=== PATIENT | male | born 1975 ===

== ENCOUNTER 2017-04-30 14:08 | Emergency (ER) | payer BC ==
[2017-04-30] MEDS ORDERED: Sodium Chloride 0.9% 10 ML Syringe FLUSH PRN (14:43)
--- NOTE | 2017-04-30 14:59 | EDM.PDOC ---
ED HPI GENERAL MEDICAL PROBLEM - General Chief Complaint: Chest Pain Stated Complaint: SYNCOPE/CHEST TIGHTNESS Time Seen by Provider: 04/30/17 14:30 Source of Information: Reports: Patient History Limitations: Reports: No Limitations - History of Present Illness INITIAL COMMENTS - FREE TEXT/NARRATIVE: Patient is a 42-year-old male who presents to the ED complaining of fluttering sensation to his chest. States he just does not feel well. States this sensation started last night. States he felt like he was coming down with something and felt rough. Patient went to work this morning and with moving heavy hose and pumps he started to feel worse. He has mild dizziness. Became mildly diaphoretic. Palpitations/fluttering sensation in his chest worsen. Patient presents to the ED mildly diaphoretic with fluttering sensation with presumably new onset A. fib per monitor. He denies any chest pain, shows breath, nausea/vomiting, increasing to be sick/ syncopal episode, pain to his back/ neck/ arms, nausea tingling, fever/chills, diarrhea, or any additional complaints. Patient drinks one cup of coffee in the a.m. Denies any caffeine supplementation or concerns consumption of pop or energy drinks. Denies taking any stimulants. Patient has no previous past medical history is currently taking no medications. He has no recent surgical history as well. Patient did smoke one pack of cigarettes per day but recently quit 2 days ago. Denies any recent alcohol or recreational drug use. PCP is Fadia RICHMOND. - Related Data Allergies Allergy/AdvReac Type Severity Reaction Status Date / Time codeine Allergy Hives Verified 04/30/17 14:14 erythromycin base Allergy Stomach Verified 04/30/17 14:14 Upset meperidine [From Demerol] Allergy Anaphylactic Verified 04/30/17 14:14 Shock Home Meds: Home Meds Diltiazem HCl [Cardizem] 60 mg PO BID #60 tablet 04/30/17 [Rx] Past Medical History - Past Health History Medical/Surgical History: Denies Medical/Surgical History Social & Family History - Tobacco Use Smoking Status *Q: Former Smoker Years of Tobacco use: 10 Packs/Tins Daily: 1 Used Tobacco, but Quit: No - Recreational Drug Use Recreational Drug Use: No ED ROS GENERAL - Review of Systems Review Of Systems: ROS reveals no pertinent complaints other than HPI. ED EXAM, GENERAL - Physical Exam Exam: See Below Exam Limited By: No Limitations General Appearance: Alert, WD/WN, No Apparent Distress Eye Exam: Bilateral Eye: PERRL Ears: Hearing Grossly Normal Nose: Normal Inspection Throat/Mouth: Normal Voice, No Airway Compromise Neck: Normal Inspection, Supple Respiratory/Chest: No Respiratory Distress, Lungs Clear, Normal Breath Sounds, No Accessory Muscle Use Cardiovascular: Normal Peripheral Pulses, No Murmur, Irregularly Irregular. No : Diastolic Murmur, Systolic Murmur Peripheral Pulses: 2+: Radial (L), Radial (R) GI/Abdominal: Normal Bowel Sounds, Soft, Non-Tender, No Organomegaly, No Distention Back Exam: Normal Inspection Extremities: Normal Inspection, Normal Range of Motion, Non-Tender, No Pedal Edema, Normal Capillary Refill Neurological: Alert, Oriented, CN II-XII Intact, Normal Cognition, No Motor/ Sensory Deficits Psychiatric: Normal Affect, Normal Mood Skin Exam: Warm, Intact, Normal Color, Diaphoretic, Other ( Patient states he had multiple tick bites over the past 2 weeks. Sites were barely identifiable. There is no signs of infection. There is no signs of erythema migraines.) Course - Vital Signs Last Recorded V/S: Last Vital Signs Temp 97.2 F 04/30/17 14:14 Pulse 69 04/30/17 17:16 Resp 19 04/30/17 17:16 BP 120/85 04/30/17 17:16 Pulse Ox 98 04/30/17 17:16 - Orders/Labs/Meds Orders: Active Orders 24 hr Category Date Time Status EKG 12 Lead [EKG Documentation Completion] [RC] STAT Care 04/30/17 14:15 Active Peripheral IV Care [RC] . DIRECTED Care 04/30/17 14:43 Active Chest 1V Frontal [CR] Stat Exams 04/30/17 14:42 Taken LYME/B.BURGDORFERI IGG/IGM [REF] Stat Lab 04/30/17 13:15 Received Peripheral IV Insertion Adult [OM.PC] Stat Oth 04/30/17 14:42 Ordered Labs: Laboratory Tests 04/30/17 04/30/17 04/30/17 Range/Units 13:15 13:15 13:15 WBC 11.36 H (4.23-9.07) K/mm3 RBC 4.89 (4.63-6.08) M/mm3 Hgb 15.0 (13.7-17.5) gm/L Hct 43.1 (40.1-51.0) % MCV 88.1 (79.0-92.2) fl MCH 30.7 (25.7-32.2) pg MCHC 34.8 (32.2-35.5) g/dl RDW Std Deviation 41.3 (35.1-43.9) fL Plt Count 259 (163-337) K/mm3 MPV 10.7 (9.4-12.3) fl Neut % (Auto) 62.6 (34.0-67.9) % Lymph % (Auto) 25.0 (21.8-53.1) % Kay % (Auto) 9.1 (5.3-12.2) % Eos % (Auto) 2.7 (0.8-7.0) Baso % (Auto) 0.4 (0.1-1.2) % Neut # (Auto) 7.11 H (1.78-5.38) K/mm3 Lymph # (Auto) 2.84 (1.32-3.57) K/mm3 Kay # (Auto) 1.03 H (0.30-0.82) K/mm3 Eos # (Auto) 0.31 (0.04-0.54) K/mm3 Baso # (Auto) 0.05 (0.01-0.08) K/mm3 PT 9.8 (8.0-13.0) SECONDS INR 0.90 APTT (22-36) SECONDS Sodium 142 (136-145) mEq/L Potassium 3.8 (3.5-5.1) mEq/L Chloride 107 (98-107) mEq/L Carbon Dioxide 27 (21-32) mEq/L Anion Gap 11.8 (5-15) BUN 14 (7-18) mg/dL Creatinine 1.0 (0.7-1.3) mg/dL Est Cr Clr Drug Dosing 117.36 mL/min Estimated GFR (MDRD) > 60 (>60) mL/min BUN/Creatinine Ratio 14.0 (14-18) Glucose 103 (74-106) mg/dL Calcium 8.6 (8.5-10.1) mg/dL Magnesium (1.8-2.4) mg/dl Total Bilirubin 0.5 (0.2-1.0) mg/dL AST 17 (15-37) U/L ALT 30 (16-63) U/L Alkaline Phosphatase 68 (46-116) U/L Troponin I < 0.017 (0.00-0.056) ng/mL C-Reactive Protein 0.3 (<1.0) mg/dL Total Protein 7.2 (6.4-8.2) g/dl Albumin 3.5 (3.4-5.0) g/dl Globulin 3.7 gm/dL Albumin/Globulin Ratio 1.0 (1-2) Free T4 (0.76-1.46) ng/dL TSH 3rd Generation 0.873 (0.358-3.74) uIU/mL 04/30/17 04/30/17 04/30/17 Range/Units 13:15 13:15 13:15 WBC (4.23-9.07) K/mm3 RBC (4.63-6.08) M/mm3 Hgb (13.7-17.5) gm/L Hct (40.1-51.0) % MCV (79.0-92.2) fl MCH (25.7-32.2) pg MCHC (32.2-35.5) g/dl RDW Std Deviation (35.1-43.9) fL Plt Count (163-337) K/mm3 MPV (9.4-12.3) fl Neut % (Auto) (34.0-67.9) % Lymph % (Auto) (21.8-53.1) % Kay % (Auto) (5.3-12.2) % Eos % (Auto) (0.8-7.0) Baso % (Auto) (0.1-1.2) % Neut # (Auto) (1.78-5.38) K/mm3 Lymph # (Auto) (1.32-3.57) K/mm3 Kay # (Auto) (0.30-0.82) K/mm3 Eos # (Auto) (0.04-0.54) K/mm3 Baso # (Auto) (0.01-0.08) K/mm3 PT (8.0-13.0) SECONDS INR APTT 28 (22-36) SECONDS Sodium (136-145) mEq/L Potassium (3.5-5.1) mEq/L Chloride (98-107) mEq/L Carbon Dioxide (21-32) mEq/L Anion Gap (5-15) BUN (7-18) mg/dL Creatinine (0.7-1.3) mg/dL Est Cr Clr Drug Dosing mL/min Estimated GFR (MDRD) (>60) mL/min BUN/Creatinine Ratio (14-18) Glucose (74-106) mg/dL Calcium (8.5-10.1) mg/dL Magnesium 1.8 (1.8-2.4) mg/dl Total Bilirubin (0.2-1.0) mg/dL AST (15-37) U/L ALT (16-63) U/L Alkaline Phosphatase (46-116) U/L Troponin I (0.00-0.056) ng/mL C-Reactive Protein (<1.0) mg/dL Total Protein (6.4-8.2) g/dl Albumin (3.4-5.0) g/dl Globulin gm/dL Albumin/Globulin Ratio (1-2) Free T4 0.98 (0.76-1.46) ng/dL TSH 3rd Generation (0.358-3.74) uIU/mL Meds: Medications Discontinued Medications Generic Name Dose Route Start Last Admin Trade Name Freq PRN Reason Stop Dose Admin Aspirin 324 mg 04/30/17 15:12 04/30/17 15:14 Aspirin PO 04/30/17 15:13 324 mg ONETIME ONE Administration Diltiazem HCl 60 mg 04/30/17 15:23 04/30/17 15:37 Cardizem PO 04/30/17 15:24 60 mg ONETIME ONE Administration Diltiazem HCl 60 mg 04/30/17 15:34 04/30/17 15:37 Cardizem PO 04/30/17 15:35 Not Given ONETIME ONE Magnesium Sulfate 2 gm/ Premix 50 mls @ 25 mls/hr 04/30/17 15:04 04/30/17 15: 11 IV 04/30/17 17:03 25 mls/hr ONETIME ONE Administration Sodium Chloride 1,000 mls @ 999 mls/hr 04/30/17 15:23 04/30/17 15:33 Normal Saline IV 04/30/17 16:23 999 mls/hr ONETIME ONE Administration Sodium Chloride 10 ml 04/30/17 14:43 04/30/17 15:00 Saline Flush FLUSH 10 ml ASDIRECTED PRN Administration Keep Vein Open - Radiology Interpretation Free Text/Narrative:: Patient states over two weeks ago he found multiple ticks to belt line, right upper arm, and back that were imbedded but not engorged. States they appeared to be wood ticks. States thew were removed. States he developed small area of redness to bite locations less then a pencil eraser in size. States they were excessively itchy. Denies any history of Lyme disease in the past. He has not developed any rash consistent for erythema migrans. Order peripheral IV with normal saline 999, CBC, chem 14, CRP, PTT/INR, PTT, TSH , troponin, and chest x-ray one view. EKG did reveal a defibrillation with a rate of 69-[address] changes noted. Ordered ASA 324 mg PO. - Re-Assessments/Exams Free Text/Narrative Re-Assessment/Exam: Order peripheral IV with normal saline 999 mL per hour. Aspirin 324 mg by mouth. Initial labs and studies include CBC, chem 14, CRP, PTT/INR, PTT, TSH, free T4, troponin, chest x-ray one view. EKG did reveal a 2 fibrillation at a rate of 69-135. No acute ST changes noted. Chads2 score of 0, 1.9% risk of stroke. Discussed patient with Dr. Brown web application dev specialist [facility]. Suggested 250ml bolus, ASA 324mg PO, and Cardizem 60mg PO. If no change in one hour start Cardizem gtt and admit. If successful rate control discharge home with instructions to take cardizem 60mg bid and followup with PCP this coming week. Continue ASA 324mg PO qd. Patient will require further testing such as echocardiogram/or stress echocardiogram. She does not believe patients A-Fib is related to recent tick bites but suggests obtaining lyme titre. Dr. Brown suggested patient following up with Dr. Goss with [facility]. 04/30/17 16:39 reassessment, patient was sleeping soundly upon reexamination. Patient has minimal complaints at this time. Continues to have fluttering sensation to his chest. Otherwise vital signs are stable. He has no chest pain, short of breath, or dizziness at this time. Discharge patient home with instructions to follow-up with Dr. Goss. Patient is traveling to [place] tomorrow for a family members . He'll be returning Tuesday. I told him to call this Tuesday to arrange an appt for later that week. Will discharge him home with prescription for cardizem 60mg. Departure - Departure Time of Disposition: 16:41 Disposition: Home, Self-Care 01 Condition: Good Clinical Impression: New onset atrial fibrillation Prescriptions: Diltiazem HCl [Cardizem] 60 mg PO BID #60 tablet Instructions: Atrial Fibrillation, [id number] Referrals: Anjum Gunderson [Physician] - Fadia Rubin PA [Primary Care Provider] - Forms: ED Department Discharge Additional Instructions: As discussed you have new onset atrial fibrillation. All lab work obtained today was essentially normal. Chest x-ray did not reveal any concerning findings. EKG did not reveal any concerning findings except for new onset atrial fibrillation. We have started you on Cardizem 60 mg twice a day. Will have you take full dose adult aspirin 325 mg every morning. Call and make an appointment to be evaluated by Dr. Goss this coming . Make an appointment this coming Tuesday. If you should develop chest pain, nausea/vomiting, dizziness , presyncope or/syncopal episodes, fever/chills, or any neurological deficits please be evaluated at the closest ED immediately. Push the fluids. Ensure adequate rest. Refrain from any caffeinated stimuli. - My Orders Last 24 Hours: My Active Orders 04/30/17 13:15 LYME/B.BURGDORFERI IGG/IGM [REF] Stat 04/30/17 14:15 EKG 12 Lead [EKG Documentation Completion] [RC] STAT 04/30/17 14:42 Chest 1V Frontal [CR] Stat Peripheral IV Insertion Adult [OM.PC] Stat 04/30/17 14:43 Peripheral IV Care [RC] . DIRECTED - Assessment/Plan Last 24 Hours: My Active Orders 04/30/17 13:15 LYME/B.BURGDORFERI IGG/IGM [REF] Stat 04/30/17 14:15 EKG 12 Lead [EKG Documentation Completion] [RC] STAT 04/30/17 14:42 Chest 1V Frontal [CR] Stat Peripheral IV Insertion Adult [OM.PC] Stat 04/30/17 14:43 Peripheral IV Care [RC] . DIRECTED
[2017-04-30] MEDS ORDERED: Magnesium Sulfate/Water 2 GM in Premix Bag 1 BAG IV ONE (15:04)
[2017-04-30] MEDS ORDERED: Aspirin 81 MG Tab.Chew PO ONE (15:12)
[2017-04-30] MEDS ORDERED: Diltiazem IR 60 MG Tab PO ONE ×2 (15:23→15:34)
[2017-04-30] MEDS ORDERED: Sodium Chloride 0.9% 1,000 ML IV ONE (15:23)
[2017-04-30 17:18] VITALS: BP 120/85
--- NOTE | 2017-05-02 08:11 | CR ---
Chest: Frontal view of the chest was obtained. Comparison: No previous study. Heart size and mediastinum are normal. Lungs are clear. Bony structures are grossly intact. Impression: 1. Nothing acute is identified on frontal chest x-ray. Diagnostic code #1
== END 2017-04-30 17:10 | disposition home or self-care (01) ==
LOC: JD.ED 14:08
DX: I48.91 Unspecified atrial fibrillation (principal); Z88.5 Allergy status to narcotic agent; Z88.1 Allergy status to other antibiotic agents; Z87.891 Personal history of nicotine dependence
CPT/HCPCS: 36415; 71010; 80053; 83735; 84439; 84443; 84484; 85025; 85610; 85730; 86140; 86618; 93005; 96360; 96365; 96366; 99285; A9270; J7040; J7050; 99284; J3475